=== PATIENT | female | born 1955 | race Caucasian/White ===

== ENCOUNTER 2017-02-14 12:40 | Emergency (ER) | payer BC ==
[~2017-02-14] VITALS: Ht 172.7 cm; Wt 59.0 kg
--- NOTE | 2017-02-14 12:55 | NUR ---
pt examined by Dr. Bearden at bedside. pt was not noted to be in distress. flu swab done per order.
[2017-02-14] MEDS ORDERED: AZITHROMYCIN 250 MG TABLET PO ONE (13:00)
--- NOTE | 2017-02-14 13:10 | NUR ---
Patient discharged to home in stable conditon. Written and verbal after care instructions given, as well as rx and work excuse note. Patient verbalizes understanding of instructions.
[2017-02-14 13:18] VITALS: BP 139/74
[2017-02-14] MEDS ORDERED: AZITHROMYCIN 250 MG TABLET ONE (13:20)
== END 2017-02-14 13:18 | disposition home or self-care (01) ==
LOC: ER 12:40
DX: J40 Bronchitis, not specified as acute or chronic (principal); Z88.1 Allergy status to other antibiotic agents
CPT/HCPCS: 87400; 99284; A4663; Q0144